=== PATIENT | male | born 1960 | race Caucasian/White ===

== ENCOUNTER 2017-06-13 17:44 | Outpatient (CLI) | payer OTHER ==
--- NOTE | 2017-06-14 10:39 | Diagnostic Imaging Report ---
Indication: COUGH Technique: Two views of the chest Comparison: 04/08/2016 Findings: There is a calcified granuloma at the right lung base. The lungs and pleural spaces otherwise clear. There is spinal fusion hardware present in the lower cervical and upper thoracic spine that was not evident previously Impression: No acute process Old granulomatous disease
== END 2017-06-13 19:44 | disposition home or self-care (01) ==
LOC: RAD 17:44
DX: R05 Cough (principal)
CPT/HCPCS: 71020

== ENCOUNTER → 2019-01-11 | Outpatient (CLI) | payer OTHER ==
--- NOTE | 2019-01-11 17:35 | Diagnostic Imaging Report ---
Indication: Pain Technique: PA and lateral views of the chest Comparison: 06/13/2017 Findings: Heart size and mediastinal contours are within normal limits and stable compared to the prior exam. There is an unchanged calcified granuloma at the right lung base. There is no focal airspace consolidation. No pleural effusion or pneumothorax. There are degenerative changes in the spine. Spinal fixation hardware is again noted. No acute osseous abnormality is appreciated. Impression: No radiographic evidence of acute cardiopulmonary disease.
== END | disposition home or self-care (01) ==
LOC: RAD 16:09
DX: Z01.818 Encounter for other preprocedural examination (principal); Z01.812 Encounter for preprocedural laboratory examination; R07.9 Chest pain, unspecified
CPT/HCPCS: 71046

== ENCOUNTER → 2020-05-06 | Outpatient (CLI) | payer OTHER ==
--- NOTE | 2020-05-06 16:18 | Diagnostic Imaging Report ---
Indication: Cough Technique: 2 views of the chest Comparison: 01/11/2019 Findings: The lungs and pleural spaces are clear. The heart size is normal. There is surgical hardware in the cervical spine. There are degenerative changes of the thoracic spine. Findings are unchanged Impression: No acute process. Findings as noted
== END | disposition home or self-care (01) ==
LOC: RAD 15:07
DX: Z01.818 Encounter for other preprocedural examination (principal); Z01.812 Encounter for preprocedural laboratory examination; R05 Cough
CPT/HCPCS: 71046